=== PATIENT | female | born 1960 | race Caucasian/White ===

== ENCOUNTER 2018-03-09 14:40 | Emergency (ER) | payer OTHER ==
[~2018-03-09] VITALS: Ht 165.1 cm; Wt 54.4 kg
[~2018-03-09 14:40] MED LIST: ALBU90OI INH; CEPH500 PO; DOXY100 PO; HYDACE5 PO; HYDGUAL120 PO; LISHYD1012 PO; SULTRIDS PO
[2018-03-09] MEDS ORDERED: Percocet 5-3251 EACH PO (15:39)
[2018-03-09] MEDS ORDERED: NO ROUTINE MEDS (15:43)
== END 2018-03-09 15:50 | disposition home or self-care (01) ==
LOC: ER 14:40
DX: S52.041A Displaced fracture of coronoid process of right ulna, initial encounter for closed fracture (principal); I10 Essential (primary) hypertension; F17.200 Nicotine dependence, unspecified, uncomplicated; Z79.899 Other long term (current) drug therapy; W19.XXXA Unspecified fall, initial encounter
CPT/HCPCS: 29105; 73080; 99283-25